=== PATIENT | male | born 1985 | race Caucasian/White ===

== ENCOUNTER 2024-02-01 07:30 | Outpatient (RCR) | payer OTHER, BC, SELFPAY | END 2024-02-22 14:50 | disposition home or self-care (01) | PROVIDERS: Visit Provider Orthopaedic Surgery Hand Surgery | DX: S66.19 Other injury of flexor muscle, fascia and tendon of other and unspecified finger at wrist and hand level (principal); M79.645 Pain in left finger(s); M79.643 Pain in unspecified hand; M65.332 Trigger finger, left middle finger; Z74.09 Other reduced mobility; Z51.89 Encounter for other specified aftercare | CPT/HCPCS: 97035; 97110; 97140; 97165; X5282 ==